=== PATIENT | male | born 1955 | race African-American/Black ===

== ENCOUNTER 2024-09-23 10:03 | Emergency (ER) | payer OTHER ==
[~2024-09-23] VITALS: Ht 167.6 cm; Wt 72.6 kg
[2024-09-23] MEDS ORDERED: LORAZEPAM1 MG PO (11:08)
[2024-09-23] MEDS ORDERED: ROSUVASTATIN CA20 MG PO (11:08)
[2024-09-23] MEDS ORDERED: LIDOCAINE HCL 1%/EPINEPHRINE 20ML VIAL IJ ONE (12:00)
[2024-09-23] MEDS ORDERED: TETANUS & DIPHTHERIA TOX,ADULT 0.5 ML VIAL IM ONE (12:15)
[2024-09-23 12:38] LABS: HEMATOCRIT 43.7 % (39.0-48.0); HEMOGLOBIN 15.4 g/dL (13-16.00); MEAN CORPUSCULAR HEMOGLOBIN 31.6 pg (27.00-32.0); MEAN CORPUSCULAR HGB CONC 35.1 g/dl (32.0-36.0); PLATELET COUNT 164 K/uL (150-450); RED BLOOD COUNT 4.86 M/uL (4.00-6.00)
[2024-09-23 13:13] LABS: ALBUMIN 4.3 gm/dL (3.4-5.0); BILIRUBIN TOTAL 0.65 mg/dL (0.3-1.2); CALCIUM 8.9 mg/dL (8.5-10.1); CREATININE SERUM 0.95 mg/dL (0.70-1.30); GFR 79.07; GLOBULINA 3.3 G/DL (2.4-3.5); POTASSIUM 4.2 mEq/L (3.5-5.1); TOTAL PROTEIN 7.6 gm/dL (6.4-8.2)
== END 2024-09-23 17:17 | disposition home or self-care (01) ==
LOC: ER 10:05
PROVIDERS: Emergency Medicine
DX: S01.112A Laceration without foreign body of left eyelid and periocular area, initial encounter (principal); S01.81XA Laceration without foreign body of other part of head, initial encounter; W18.39XA Other fall on same level, initial encounter; Y93.89 Activity, other specified; Y92.89 Other specified places as the place of occurrence of the external cause; Y99.9 Unspecified external cause status
CPT/HCPCS: 12013; 70450; 90471; 90714; 99284; J1670